=== PATIENT | male | born 1990 | race African-American/Black ===

== ENCOUNTER 2017-11-21 01:33 | Emergency (ER) | payer MEDICAID ==
[~2017-11-21] VITALS: Ht 182.9 cm; Wt 74.8 kg
[2017-11-21 07:18] VITALS: BP 125/105
[2017-11-21] MEDS: KETOROLAC TROMETH 60MG/2ML VIAL IM ONE (07:24)
== END 2017-11-21 08:39 | disposition home or self-care (01) ==
LOC: ER 08:39
DX: N45.1 Epididymitis (principal); F12.10 Cannabis abuse, uncomplicated
CPT/HCPCS: 76870; 96372; 99284; J1885

== ENCOUNTER 2021-03-02 17:03 | Emergency (ER) | payer SELFPAY ==
[~2021-03-02] VITALS: Ht 185.4 cm; Wt 72.6 kg
[2021-03-02 17:05] VITALS: BP 122/80
== END 2021-03-02 21:26 | disposition left against medical advice (07) ==
LOC: ER 17:03
DX: H57.89 Other specified disorders of eye and adnexa (principal); Z53.21 Procedure and treatment not carried out due to patient leaving prior to being seen by health care provider